=== PATIENT | female | born 1960 | race Caucasian/White ===

== ENCOUNTER 2017-01-31 14:19 | Emergency (ER) | payer SELFPAY ==
--- NOTE | 2017-02-05 15:34 | ER ---
ADMIT: 01/31/2017 RM/LOC: ER [facility] MR#: [id number] [id number] CHRIS RAMSEY [address] [place] [id number] Emergency Room Report SEX: F AGE: 56 : 1960 DATE: 01/31/2017 CHIEF COMPLAINT: "Achy." HISTORY OF PRESENT ILLNESS: This is a 56-year-old white female, who presents to the ER for evaluation of some achiness for the past 2 days. Upon further questioning, patient admits to some dysuria and urinary frequency. The patient states she has had problems with bladder and kidney infections in the past as well as an episode of kidney stones. She denies any hematuria at this time. Did have some associated fever, chills, and night sweats last night. Admits to some loss of appetite and right low back pain. COURSE IN THE EMERGENCY ROOM: The patient was seen and examined. Significant for right sided CVA tenderness. She was otherwise afebrile, temp 98.2, heart rate 72, respirations 18, BP 131/85. UA was obtained shows positive nitrites, 3+ leukocyte esterase, 174 white blood cells per high-power field, 2 red blood cells per high-power field. Culture was set up. The patient does admit to me that she has no money to afford any medications at this time. IMPRESSION: Acute pyelonephritis. DISPOSITION: I did recommend the patient start a course of Bactrim DS 1 tab p.o. daily for 14 days. I did consult social work to see if they could provide financial assistance in affording the medication. She is to increase her fluids as tolerated. Return if she has any worsening signs or symptoms or follow up with [address] [place] [address] who she typically sees. She can use Tylenol or Motrin for pain or fever. She is to go home and rest. Questions were sought and answered to the best of my ability and to the patient's satisfaction. She was discharged pending social work in stable condition. JANETT Alvarado / Alex Mercedes MD / jason JOB #: [id number] CC: Alex Mercedes MD, Attending Physician Salvador Graham MD, Family Physician
== END 2017-01-31 17:00 | disposition home or self-care (01) ==
LOC: ER 14:19
DX: N10 Acute pyelonephritis (principal); J45.909 Unspecified asthma, uncomplicated; J44.9 Chronic obstructive pulmonary disease, unspecified; F17.210 Nicotine dependence, cigarettes, uncomplicated; Z79.51 Long term (current) use of inhaled steroids; Z88.0 Allergy status to penicillin

== ENCOUNTER 2017-03-14 22:11 | Emergency (ER) | payer SELFPAY ==
--- NOTE | 2017-04-13 16:38 | ER ---
ADMIT: 03/14/2017 RM/LOC: ER [facility] MR#: [id number] [id number] CHRIS RAMSEY [address] [place] [id number] Emergency Room Report SEX: F AGE: 57 : 1960 DATE: 03/14/2017 ADDENDUM: This patient comes into the ER because she has had dysuria for the last 3 days. She rates it as moderate. She has had no vomiting or diarrhea or fevers. Her pain is right above the pubic symphysis. Her urinalysis showed 673 wbc cells. I wrote a prescription for Bactrim and Pyridium. We will have her push fluids and follow up with her primary in the next week to recheck her urine if not feeling better. Please see my T-sheet. JANETT Lawson / Fabio Baumann MD / jason JOB #: [id number] CC: Fabio Baumann MD, Attending Physician Clemente Pierre MD, Family Physician
== END 2017-03-15 00:15 | disposition home or self-care (01) ==
LOC: ER 22:11
DX: N39.0 Urinary tract infection, site not specified (principal); F17.210 Nicotine dependence, cigarettes, uncomplicated; Z98.890 Other specified postprocedural states; Z88.0 Allergy status to penicillin